=== PATIENT | male | born 1980 | race African-American/Black ===

== ENCOUNTER → 2020-04-20 | Outpatient (CLI) | payer OTHER ==
--- NOTE | 2020-04-20 09:24 | RAD ---
ANKLE RIGHT 3V 04/20/2020 12:00 AM INDICATION: Closed fracture of the right ankle COMPARISON: None available. TECHNIQUE: 3 views of the right ankle are provided. FINDINGS/ IMPRESSION: 1. There is a subacute fracture involving the distal fibular diaphysis which is obliquely oriented with at least one shaft width displacement. Periosteal reaction may reflect early bone healing. 2. There is a fracture fragment between the tibia and fibula which may reflect a donor site from the lateral tibial. 3. There is disruption of the ankle mortise with widening of the medial tibiotalar joint space. Talar dome appears intact. Calcaneus is intact. Ankle joint effusion is suspected. Electronically signed by: Kayleigh Multani MD (04/20/2020 9:21 AM) [id number]
== END | disposition home or self-care (01) ==
LOC: EEVIPCON 07:49 → DXRAD 07:49
PROVIDERS: ATTEND Physician Assistant
DX: S82.891S Other fracture of right lower leg, sequela (principal); X58.XXXS Exposure to other specified factors, sequela
CPT/HCPCS: 73610